=== PATIENT | male | born 1995 | race Caucasian/White ===

== ENCOUNTER 2021-06-20 17:01 | Emergency (ER) | payer OTHER, SELFPAY ==
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
[2021-06-20 17:06] VITALS: BP 126/76; PULSE 70; O2SAT 98
[2021-06-20 17:25] VITALS: BP 118/57; PULSE 67; RESP 16; TEMP 36.6; O2SAT 97; BMI 21.9
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
[2021-06-20] MEDS: Diphth,Pertus(ACell),Tet Adult 0.5 ML SYRINGE IM (19:16)
== END 2021-06-20 19:34 | disposition home or self-care (01) ==
PROVIDERS: Emergency Provider Internal Medicine
DX: S02.2XXA Fracture of nasal bones, initial encounter for closed fracture (principal); S00.31XA Abrasion of nose, initial encounter; M54.2 Cervicalgia; G44.309 Post-traumatic headache, unspecified, not intractable; V47.5XXA Car driver injured in collision with fixed or stationary object in traffic accident, initial encounter; Y93.9 Activity, unspecified; Y92.410 Unspecified street and highway as the place of occurrence of the external cause; Y99.9 Unspecified external cause status; Z79.899 Other long term (current) drug therapy
CPT/HCPCS: 70450; 70486; 72125; 90715; 99282; 99284